=== PATIENT | female | born 1995 | race Caucasian/White ===

== ENCOUNTER 2023-08-04 05:20 | Inpatient (IN) | payer MEDICAID ==
[2023-08-02 16:05] LABS: PRE OP PROTIME 10.3 SECONDS (9.0-12.0)
[2023-08-02 16:06] LABS: BASOPHILS % (AUTO) 0.3 % (0-1); EOSINOPHILS # (AUTO) 0.1 X10'3 (0-0.9); EOSINOPHILS % (AUTO) 1.6 % (0-6); MEAN CORPUSCULAR HEMOGLOBIN 28.9 PG (27.0-31.0); MEAN CORPUSCULAR HGB CONC 33.3 g/dL (33.0-36.5); MEAN CORPUSCULAR VOLUME 86.6 FL (78-98); MEAN PLATELET VOLUME 7.9 FL (7.4-10.4); MONOCYTES # (AUTO) 0.5 X10'3 (0-0.9); MONOCYTES % (AUTO) 5.8 % (2-12); NEUTROPHILS # (AUTO) 6.4 X10'3 (1.8-7.7); NEUTROPHILS % (AUTO) 70.3 % (42-75); PRE OP HEMATOCRIT 42.7 % (35.0-45.0); PRE OP HEMOGLOBIN 14.2 g/dL (12.0-16.0); PRE OP PLATELET COUNT 344 X10'3 (140-440); PRE OP WHITE BLOOD COUNT 9.1 10'3 (4.8-10.8); RED BLOOD COUNT 4.93 X10'6 (4.20-5.60); RED CELL DISTRIBUTION WIDTH 14.4 % (11.5-14.5)
[2023-08-02 16:07] LABS: ALBUMIN 3.7 G/DL (3.4-5.0); ALBUMIN/GLOBULIN RATIO 0.9 (1.1-1.5); ALKALINE PHOSPHATASE 79 IU/L (46-116); BLOOD UREA NITROGEN 16 MG/DL (7-18); BUN/CREATININE RATIO 20.3 (10.0-20.0); CHLORIDE 106 MMOL/L (99-107); CREATININE 0.79 MG/DL (0.40-0.90); PRE OP ALT 36 U/L (30-65); PRE OP ANION GAP 10 (8-16); PRE OP AST 13 U/L (10-37); PRE OP BILIRUB, TOTAL 0.5 MG/DL (0.0-1.0); PRE OP GLUCOSE 90 MG/DL (70-104); PRE OP POTASSIUM 3.6 MMOL/L (3.4-5.1); PRE OP SODIUM 142 MMOL/L (135-145); TOTAL CARBON DIOXIDE 26.2 MMOL/L (24-32); TOTAL PROTEIN 7.8 G/DL (6.4-8.2); eGFR 87 ML/MIN
[2023-08-04] VITALS (24 sets, daily range): BP systolic 103–123; BP diastolic 53–79; PULSE 56–101; RESP 14–21; TEMP 95.5–98.5; O2SAT 91–98
[~2023-08-04] VITALS: Ht 162.6 cm; Wt 120.3 kg
[~2023-08-04 05:20] MED LIST: ADV50100 IH; ALBU8HFA PO; CLON0.5T54 PO; OMEP10CA5 PO
[2023-08-04] MEDS: cefazolin 2gm/D5W 100mL 100 ML IV ONE (05:30)
[2023-08-04] MEDS ORDERED: BUPIVACAINE liposomal/PF 13.3 MG/ML vial IM ONE ×3 (06:40→07:26)
[2023-08-04] MEDS ORDERED: BUPIVAcaine/PF 2.5mg/ml (0.25%) 10ml vial ONE (06:40)
[2023-08-04] MEDS: famotidine 20mg tablet PO ONE (06:53)
[2023-08-04] MEDS: ringers solution, lacted 1,000 ML IV SCH ×3 (06:54→14:20)
[2023-08-04] MEDS ORDERED: BUPIVAcaine 0.5% inj/PF 30 ML ONE (07:17)
[2023-08-04] MEDS ORDERED: BUPIVAcaine/PF 5 mg/ml 10ml ONE (07:17)
[2023-08-04] MEDS ORDERED: MIDAZolam 1 MG/ML 5ML VIAL ONE (07:22)
[2023-08-04] MEDS ORDERED: fentaNYL /PF 50mcg/ml 5ml ampule ONE ×2 (07:22→08:21)
[2023-08-04] MEDS ORDERED: LIDOcaine 2% (20mg/ml) 5ml vial ONE (07:25)
[2023-08-04] MEDS ORDERED: rocuronium 10mg/ml inj IV ONE ×2 (07:25→09:29)
[2023-08-04] MEDS ORDERED: dexamethasone sod phosphate 4mg/ml inj. ONE (07:25)
[2023-08-04] MEDS ORDERED: propofol inj 20 ML IV ONE (07:25)
[2023-08-04] MEDS ORDERED: ondansetron/PF 4mg/2ml inj ONE (07:27)
[2023-08-04] MEDS ORDERED: fentaNYL/PF 50MCG/1 ML 2ML syringe IV PRN ×2 (07:35)
[2023-08-04] MEDS ORDERED: morphine 4 MG/ML inj SYRINge IV PRN (07:35)
[2023-08-04] MEDS ORDERED: hydrALAZINE 20mg/ml inj. IV PRN (07:35)
[2023-08-04] MEDS ORDERED: ondansetron/PF 4mg/2ml inj IV PRN (07:35)
[2023-08-04] MEDS ORDERED: labetalol 20mg/4ml (5mg/ml) syringe IV PRN (07:35)
[2023-08-04] MEDS ORDERED: sevoflurane 250ml liquid IH ONE (07:37)
[2023-08-04] MEDS ORDERED: acetaminophen 1,000mg/100ml IV 100 ML IV ONE (08:05)
[2023-08-04] MEDS ORDERED: dexmedetomidine 200mcg/2ml inj. IV ONE (08:52)
[2023-08-04] MEDS ORDERED: ePHEDrine 50MG/ML INJ. ONE (09:45)
[2023-08-04] MEDS ORDERED: glycopyrrolate 0.2mg/ml inj ONE (09:55)
[2023-08-04] MEDS ORDERED: neostigmine methylsulfate 1 MG/ML 10ml vial ONE (09:56)
[2023-08-04] MEDS ORDERED: albuterol 2.5 MG/3 ML nebule NEB PRN (13:05)
[2023-08-04] MEDS ORDERED: morphine 2 MG/ML inj. syringe IV PRN (14:20)
[2023-08-04] MEDS: albuterol 2.5 MG/3 ML nebule NEB SCH (15:00)
[2023-08-04] MEDS: HYDROcodone/acetaminophen 5mg/325mg tablet PO PRN (15:03)
[2023-08-04] MEDS: ceFAZolin 1GM/D5W- ADD-VANTAGE 50 ML IV SCH (16:23)
[2023-08-04] MEDS: morphine 2 MG/ML inj. syringe IV PRN (16:28)
[2023-08-04] MEDS: ondansetron/PF 4mg/2ml inj IV PRN (19:55)
[2023-08-04] MEDS: clonazePAM 0.5mg tablet PO SCH (19:56)
[2023-08-04] MEDS: budesonide 0.5mg/2ml UD nebule IH SCH (20:04)
[2023-08-05 01:40] VITALS: BP 102/57; PULSE 72; RESP 16; TEMP 98.1; O2SAT 94
[2023-08-05 03:00] VITALS: PULSE 86; RESP 16; O2SAT 93
[2023-08-05 06:00] VITALS: BP 104/52; PULSE 73; RESP 16; TEMP 98.2; O2SAT 93
[2023-08-05 08:00] VITALS: RESP 14; O2SAT 93
[2023-08-05] MEDS ORDERED: non-formulary drug (Fluticasone/Salmeterol* (Advair 100-50 Diskus*) 1 INH) IH SCH (08:00)
[2023-08-05] MEDS: pantoprazole 40mg Tablet.DR PO SCH (08:58)
[2023-08-05 10:00] VITALS: BP 109/67; PULSE 83; RESP 17; TEMP 98; O2SAT 95
[2023-08-05 12:01] VITALS: RESP 14
== END 2023-08-05 12:10 | disposition home or self-care (01) | DRG 363 ==
LOC: PAS 05:20 → OBSVTOIN 14:21 → SUR 3N 14:21
PROVIDERS: ADMIT Surgery; ATTEND Surgery
PROC: 3E0T3BZ Introduction of Anesthetic Agent into Peripheral Nerves and Plexi, Percutaneous Approach (ICD-10-PCS; 2023-08-04)
PROC: 0HBV0ZZ Excision of Bilateral Breast, Open Approach (ICD-10-PCS; principal; 2023-08-04 07:37)
DX: N60.12 Diffuse cystic mastopathy of left breast (principal); E66.01 Morbid (severe) obesity due to excess calories; Z15.01 Genetic susceptibility to malignant neoplasm of breast; Z68.42 Body mass index [BMI] 45.0-49.9, adult
CPT/HCPCS: 36415; 80053; 82948; 85025; 85610; 85730; 87081; 93005; 94640; 94760; A4215; A4615; A4618; A6213; A6253; A6258; A6449; A7000; C9250; C9290; G0378; J0131; J0690; J1100; J2250; J2270; J2405; J2704; J2710; J3010; J3490; J7030; J7120; S0020

== ENCOUNTER 2023-10-20 15:17 | Emergency (ER) | payer MEDICAID ==
[~2023-10-20] VITALS: Ht 162.6 cm; Wt 117.8 kg
[2023-10-20] MEDS: ringers solution, lacted 1,000 ML IV SCH (16:14)
[2023-10-20] MEDS: HYDROmorphone inj. 0.5 MG/0.5 ML DISP.SYRIN IV ONE ×2 (16:15→17:32)
[2023-10-20 16:21] LABS: BASOPHILS # (AUTO) 0.1 X10'3 (0-0.2); BASOPHILS % (AUTO) 0.7 % (0-1); EOSINOPHILS % (AUTO) 0 % (0-6); HEMATOCRIT 43.1 % (35.0-45.0); HEMOGLOBIN 14.6 g/dl (12.0-16.0); LYMPHOCYTES # (AUTO) 1.1 X10'3 (1.1-4.8); LYMPHOCYTES % (AUTO) 5.9 % (21-51); MEAN CORPUSCULAR HEMOGLOBIN 28.4 PG (27.0-31.0); MEAN CORPUSCULAR HGB CONC 33.8 g/dL (33.0-36.5); MEAN CORPUSCULAR VOLUME 83.8 FL (78-98); MONOCYTES # (AUTO) 0.4 X10'3 (0-0.9); MONOCYTES % (AUTO) 2.3 % (2-12); NEUTROPHILS % (AUTO) 91.1 % (42-75); PLATELET COUNT 320 X10'3 (140-440); RED BLOOD COUNT 5.14 X10'6 (4.20-5.60); RED CELL DISTRIBUTION WIDTH 14.1 % (11.5-14.5); WHITE BLOOD COUNT 18.7 X10'3 (4.5-11.0)
[2023-10-20 17:06] LABS: HCG SERUM QL NEGATIVE
[2023-10-20 17:32] LABS: ALANINE AMINOTRANSFERASE 36 U/L (12-78); ALBUMIN 3.8 G/DL (3.4-5.0); ALKALINE PHOSPHATASE 73 IU/L (46-116); ANION GAP 14 (8-16); ASPARTATE AMINO TRANSFERASE 13 U/L (10-37); BILIRUBIN,TOTAL 0.6 MG/DL (0.1-1.0); BLOOD UREA NITROGEN 11 MG/DL (7-18); BUN/CREATININE RATIO 14.5 (10.0-20.0); CALCIUM 9.1 MG/DL (8.5-10.1); CHLORIDE 103 MMOL/L (99-107); CREATININE 0.76 MG/DL (0.40-0.90); GLUCOSE 124 MG/DL (70-104); LIPASE 100 U/L (16-77); POTASSIUM 3.3 MMOL/L (3.5-5.1); SODIUM 138 MMOL/L (135-145); TOTAL CARBON DIOXIDE 20.6 MMOL/L (24-32); TOTAL PROTEIN 7.6 G/DL (6.4-8.2); eCRCL 95 ML/MIN; eGFR > 90 ML/MIN
[2023-10-20] MEDS: ondansetron/PF 4mg/2ml inj IV ONE (17:32)
[2023-10-20 17:42] VITALS: BP 144/92; PULSE 74; RESP 16; TEMP 98.6; O2SAT 95
== END 2023-10-20 17:46 | disposition home or self-care (01) ==
LOC: ER 15:17
DX: K80.20 Calculus of gallbladder without cholecystitis without obstruction (principal); Z88.8 Allergy status to other drugs, medicaments and biological substances; Z88.6 Allergy status to analgesic agent; Z91.040 Latex allergy status; Z79.899 Other long term (current) drug therapy
CPT/HCPCS: 36415; 76700; 80053; 83690; 84703; 85025; 96361; 96374; 96375; 96376; 99285; J1170; J2405; J7120; J7121